=== PATIENT | female | born 1990 | race Two or more races ===

== ENCOUNTER → 2019-12-01 | Outpatient (CLI) | payer BC ==
[2019-12-01 10:35] LABS: microscopic required? NO
[2019-12-01 10:51] LABS: BASOPHIL % 0.6 % (0-2); PLATELET COUNT 224 x10^3mcL (130-400)
[2019-12-01 10:52] LABS: urine erythrocyte NEGATIVE (NEGATIVE)
[2019-12-01 11:07] LABS: RED CELL DISTRIBUTION WIDTH 16.5 % (11.5-14.5)
[2019-12-01 11:22] LABS: ALBUMIN 4.1 g/dL (3.4-5.0); ALKALINE PHOSPHATASE 94 U/L (46-116); ALT/SGPT 30 U/L (14-59); AST/SGOT 22 U/L (15-37); BILIRUBIN TOTAL 0.74 mg/dL (0.20-1.00); CALCIUM 8.6 mg/dL (8.5-10.1); CARBON DIOXIDE 27.3 mmol/L (21-32); CHLORIDE SERUM 102 mmol/L (98-107); CHOLESTEROL 179 mg/dL (<200); CHOLESTEROL/HDL RATIO 3.3; CREATININE SERUM 0.8 mg/dL (0.6-1.0); GFR1 > 60 mL/min; GLUCOSE SERUM 93 mg/dL (74-106); HDL CHOLESTEROL 55 mg/dL (40-60); POTASSIUM SERUM 3.7 mmol/L (3.5-5.1); SODIUM SERUM 139 mmol/L (136-145); TOTAL PROTEIN, SERUM 8.1 g/dL (6.4-8.2); TRIGLYCERIDES 57 mg/dL (<150)
== END | disposition home or self-care (01) ==
LOC: LB 10:01
DX: Z00.01 Encounter for general adult medical examination with abnormal findings (principal); Z11.1 Encounter for screening for respiratory tuberculosis

== ENCOUNTER → 2019-12-14 | Outpatient (CLI) | payer BC ==
[2019-12-14 14:15] LABS: IRON 36 ug/dL (50-170); TOTAL IRON BINDING CAPACITY 445 ug/dL (250-450)
[2019-12-14 14:24] LABS: PLATELET COUNT 208 x10^3mcL (130-400)
[2019-12-14 14:36] LABS: RED CELL DISTRIBUTION WIDTH 16.8 % (11.5-14.5)
[2019-12-14 15:22] LABS: BAND NEUTROPHIL 0 % (0-10); BASOPHIL 0 % (0-2); MONOCYTE 8 % (0-7); SEGMENTED NEUTROPHILS 60 % (37-75)
[2019-12-14 15:24] LABS: rbc morphology (normal/abnorm) NORMAL (NORMAL)
== END | disposition home or self-care (01) ==
LOC: US 11:00
PROC: BW4GZZZ Ultrasonography of Pelvic Region (ICD-10-PCS; principal; 2019-12-14)
PROC: BW40ZZZ Ultrasonography of Abdomen (ICD-10-PCS; 2019-12-14)
DX: R10.9 Unspecified abdominal pain (principal)